=== PATIENT | male | born 1985 | race Caucasian/White ===

== ENCOUNTER 2017-02-28 18:55 | Emergency (ER) | payer SELFPAY ==
[~2017-02-28] VITALS: Ht 182.9 cm; Wt 77.0 kg
[2017-02-28 19:05] VITALS: Ht 182.9 cm; Wt 77.0 kg
[2017-02-28] MEDS ORDERED: SOD CHLORIDE 0.9% 1,000 ML IV STA (20:01)
[2017-02-28 20:28] LABS: ADD SCAN DIFF NO
[2017-02-28] MEDS ORDERED: PANTOPRAZOLE 40 MG INJ IV ONE (20:30)
[2017-02-28 20:31] LABS: BASOPHILS % 0.4 % (0.0-2.0); EOSINOPHILS # 0.1 10^3/ul (0.0-0.5); HEMATOCRIT 49.7 % (42.0-52.0); HEMOGLOBIN 16.8 g/dl (14.0-18.0); LYMPHOCYTES # 1.2 10^3/ul (0.8-2.9); LYMPHOCYTES % 10.7 % (15.0-51.0); MEAN CORPUSCULAR HEMOGLOBIN 30.2 pg (29.0-33.0); MEAN CORPUSCULAR HGB CONC 33.8 g/dl (32.0-37.0); MEAN CORPUSCULAR VOLUME 89.2 fl (82.0-101.0); MEAN PLATELET VOLUME 10.4 fl (7.4-10.4); MONOCYTE # 0.6 10^3/ul (0.3-0.9); MONOCYTES % 5.6 % (0.0-11.0); NEUTROPHIL # 9.2 10^3/ul (1.6-7.5); NEUTROPHILS % 81.8 % (39.0-77.0); PLATELET COUNT 198 10^3/UL (140-415); RED BLOOD COUNT 5.57 10^6/ul (4.70-6.10); WHITE BLOOD COUNT 11.3 10^3/ul (4.8-10.8)
[2017-02-28 20:38] LABS: ADD UMIC NO; UR ASCORBIC ACID NEGATIVE (NEGATIVE); UR BILIRUBIN (Dip) NEGATIVE (NEGATIVE); UR BLOOD (Dip) NEGATIVE (NEGATIVE); UR CLARITY CLEAR (CLEAR); UR COLOR YELLOW (YELLOW); UR GLUCOSE (Dip) NEGATIVE (NEGATIVE); UR KETONES (Dip) NEGATIVE (NEGATIVE); UR LEUKOCYTE ESTERASE (Dip) NEGATIVE Leu/ul (NEGATIVE); UR NITRITE (Dip) NEGATIVE (NEGATIVE); UR TOTAL PROTEIN (Dip) NEGATIVE (NEGATIVE); UR UROBILINOGEN (Dip) NEGATIVE (NEGATIVE)
[2017-02-28 20:52] LABS: ALBUMIN/GLOBULIN RATIO 1.66; BILIRUBIN,INDIRECT 0.3 mg/dl (0-1.1); BILIRUBIN,TOTAL 0.3 mg/dl (0.2-1.3); CREATININE 1.12 mg/dl (0.61-1.24); POTASSIUM 3.8 mmol/L (3.5-5.1)
[2017-02-28 22:12] VITALS: BP 122/70; PULSE 78; RESP 20; TEMP 97.5
--- NOTE | 2017-02-28 22:16 | ERD ---
ER Documentation Chief Complaint Date/Time DATE: 02/28/17 TIME: 20:00 Chief Complaint etoh intoxicated, abd pain x 3 weeks denies n/v/d HPI 31-year-old male ambulatory to the ED complaining of 3 week history of intermittent, sharp and burning, nonradiating epigastric pain. Admits to chronic alcohol use and has been drinking all day at a [employer]. He has a nearby park decided today would be a good day to look into the cause of his pain. Denies nausea, vomiting, diarrhea or constipation. No hematemesis, hematochezia or melanotic stools. No relieving or exacerbating factors. No chest pain or palpitations. Denies shortness of breath or cough. No fevers or chills. ROS All systems reviewed and are negative except as per history of present illness. PMhx/Soc Reviewed in chart. As per HPI Medical and Surgical Hx: pt denies Medical Hx History of Surgery: No Anesthesia Reaction: No Hx Neurological Disorder: No Hx Respiratory Disorders: No Hx Cardiac Disorders: No Hx Psychiatric Problems: No Hx Miscellaneous Medical Probl: No Hx Alcohol Use: No Hx Substance Use: No Hx Tobacco Use: No Smoking Status: Heavy tobacco smoker FmHx No cancer or coronary artery disease Physical Exam Vitals Vital Signs Date Time Temp Pulse Resp B/P Pulse Ox O2 Delivery O2 Flow Rate FiO2 02/28/17 19:05 98.0 119 20 128/82 100 Physical Exam Const: Alert, Head: Atraumatic Eyes: Normal Conjunctiva. Pupils equal reactive to light. Horizontal nystagmus ENT: Normal External Ears, Nose and Mouth. Neck: Full range of motion. Nontender. Resp: Clear to auscultation bilaterally Cardio: Regular rate and rhythm, no murmurs Abd: Soft, non tender, non distended. Normal bowel sounds Skin: No petechiae or rashes Back: No midline or flank tenderness Ext: No cyanosis, or edema Neur: Awake and alert Psych: Normal Mood and Affect Result Diagram: 02/28/17201902/28/172019 Results 24 hrs Laboratory Tests Test 02/28/17 20:20 White Blood Count 11.310^3/ul Red Blood Count 5.5710^6/ul Hemoglobin 16.8g/dl Hematocrit 49.7% Mean Corpuscular Volume 89.2fl Mean Corpuscular Hemoglobin 30.2pg Mean Corpuscular Hemoglobin Concent 33.8g/dl Red Cell Distribution Width 12.0% Platelet Count 52827^3/UL Mean Platelet Volume 10.4fl Neutrophils % 81.8% Lymphocytes % 10.7% Monocytes % 5.6% Eosinophils % 1.0% Basophils % 0.4% Nucleated Red Blood Cells % 0.0/100WBC Neutrophils # 9.210^3/ul Lymphocytes # 1.210^3/ul Monocytes # 0.610^3/ul Eosinophils # 0.110^3/ul Basophils # 0.010^3/ul Nucleated Red Blood Cells # 0.010^3/ul Urine Color YELLOW Urine Clarity CLEAR Urine pH 5.0 Urine Specific [place] 1.020 Urine Ketones NEGATIVEmg/dL Urine Nitrite NEGATIVEmg/dL Urine Bilirubin NEGATIVEmg/dL Urine Urobilinogen NEGATIVEmg/dL Urine Leukocyte Esterase NEGATIVELeu/ul Urine Hemoglobin NEGATIVEmg/dL Urine Glucose NEGATIVEmg/dL Urine Total Protein NEGATIVEmg/dl Sodium Level 142mmol/L Potassium Level 3.8mmol/L Chloride Level 99mmol/L Carbon Dioxide Level 24mmol/L Anion Gap 23 Blood Urea Nitrogen 18mg/dl Creatinine 1.12mg/dl Glucose Level 91mg/dl Calcium Level 9.0mg/dl Total Bilirubin 0.3mg/dl Direct Bilirubin 0.00mg/dl Indirect Bilirubin 0.3mg/dl Aspartate Amino Transf (AST/SGOT) 322IU/L Alanine Aminotransferase (ALT/SGPT) 151IU/L Alkaline Phosphatase 140IU/L Total Protein 8.0g/dl Albumin 5.0g/dl Globulin 3.00g/dl Albumin/Globulin Ratio 1.66 Lipase 66U/L Current Medications Medications (Trade) Dose Ordered Sig/Gabriel Route PRN Reason Start Time Stop Time Status Last Admin Dose Admin Sodium Chloride (NS) 1,000 ml @ 1,000 mls/hr Q1H STAT IV 02/28/17 20:01 02/28/17 21:00 DC 02/28/17 20:25 Pantoprazole (Protonix Iv) 40 mg ONCE ONCE IV 02/28/17 20:30 02/28/17 20:31 DC 02/28/17 20:25 Procedures/MDM DOCUMENTS REVIEWED: ED nurse, no prior MEDICAL DECISION MAKIN-year-old male ambulatory to the ED complaining of 3 week history of intermittent, sharp and burning, nonradiating epigastric pain. Presentation consistent with acute gastritis/GERD without evidence of GI bleeding. Abdominal exam is benign without rebound, guarding or signs of peritonitis. Mild transaminitis but no pancreatitis. Chronic alcohol abuse and alcohol cessation counseling given. Stable for discharge precautionary instructions and outpatient follow-up as counseled Counseled patient regarding diagnostic workup, diagnosis and need for followup. Understands to return to ED if symptoms recur, worsen or any other concerns. Departure Diagnosis: Primary Impression: Abdominal pain, acute, epigastric Additional Impressions: Gastritis without bleeding Gastritis type: unspecified gastritis Chronicity: unspecified Qualified Code: K29.70 - Gastritis without bleeding, unspecified chronicity, unspecified gastritis type Chronic alcohol abuse Acute alcohol intoxication Complication of substance-induced condition: uncomplicated Qualified Code: F10.120 - Acute alcohol intoxication, uncomplicated Condition: Stable (Improved) SHAQUILLE REYES MD Feb 28, 2017 22:16
[2017-02-28] MEDS ORDERED: FAMO-18 PO (22:20)
== END 2017-02-28 22:35 | disposition home or self-care (01) ==
LOC: E/R 18:55
DX: R10.13 Epigastric pain (principal); K29.70 Gastritis, unspecified, without bleeding; F17.210 Nicotine dependence, cigarettes, uncomplicated
CPT/HCPCS: 36415; 80053; 81003; 83690; 85025; 96374; 99284; C9113; J7030